=== PATIENT | male | born 1955 | race Caucasian/White ===

== ENCOUNTER 2018-07-24 07:07 | Observation (INO) | payer OTHER ==
[~2018-07-24] VITALS: Ht 182.9 cm; Wt 77.6 kg
[2018-07-24 07:14] VITALS: Ht 182.9 cm; Wt 77.6 kg
--- NOTE | 2018-07-24 07:20 | NUR ---
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 PT A/O X4. RESPONDING TO QUESTIONS APPROPRIATELY. PT AMBULATORY TO [facility] WHILE NOT HAVING A CRAMPING EPISODE. COMFORT MEASURES IMPLEMENTED. CALL LIGHT W/IN REACH. PT AWAITING MSE. WILL CTM.
[2018-07-24 08:08] LABS: BASOPHIL % 0.3 % (0-2); PLATELET COUNT 144 x10^3mcL (130-400); RED CELL DISTRIBUTION WIDTH 12.5 % (11.5-14.5)
[2018-07-24 08:12] LABS: CALCIUM 9.4 mg/dL (8.5-10.1); CREATININE SERUM 1.3 mg/dL (0.7-1.3); POTASSIUM SERUM 3.7 mmol/L (3.5-5.1)
--- NOTE | 2018-07-24 08:15 | NUR ---
MEDICATED ORDERED. PLEASE SEE EMR.
[2018-07-24 08:16] LABS: ALBUMIN 3.9 g/dL (3.4-5.0); BILIRUBIN TOTAL 0.96 mg/dL (0.20-1.00); TOTAL PROTEIN, SERUM 7.3 g/dL (6.4-8.2)
--- NOTE | 2018-07-24 08:48 | NUR ---
DR. HANNAH AT BEDSIDE DISCUSSING PLAN OF CARE.
[2018-07-24] MEDS ORDERED: HYDROCHLOROTH12.5 M2 PO (08:57)
[2018-07-24] MEDS ORDERED: DIOVAN160 MG PO (08:57)
[2018-07-24] MEDS ORDERED: ATENOLOL25 MG PO (08:58)
[2018-07-24] MEDS ORDERED: NEU300 PO (08:58)
[2018-07-24] MEDS ORDERED: SIMVASTATIN20 M1 PO (08:58)
--- NOTE | 2018-07-24 09:22 | NUR ---
SPOKE W/DR. BALDERAS. INFORMED OF LAB RESULTS. STATED HE WILL PERFORM COLONOSCOPY IN OR AT [facility] [place] LATER TODAY.
--- NOTE | 2018-07-24 10:20 | NUR ---
REPORT CALLED AND GIVEN TO RN. CARO TO ASSUME CARE.
--- NOTE | 2018-07-24 10:45 | NUR ---
RECEIVED PT FROM ER. ADMISSION HISTORY AND ASSESSMENT IS DONE. PT DENIES PAIN THIS TIME. SAFTEY PRECAUTIONS ARE IN PLACE. WILL MONITOR. PT'S AT BEDSIDE.
[2018-07-24 11:02] VITALS: BP 123/68
--- NOTE | 2018-07-24 11:40 | NUR ---
GI LAB STAFF TOOK PT TO GI LAB VIA [employer]. V/S STABLE. DENIES PAIN. PT SIGNED CONSENT FOR COLONOSCOPY AND ANESTHESIA. CHECK LIST DONE. REPORT GIVEN TO GI NURSE.
--- NOTE | 2018-07-24 12:50 | NUR ---
RECEIVED PT FROM GI LAB AFTER COLONOSCOPY. V/S STABLE. PT IS AWAKE,ALERT AND ORIENTED X4. AT BEDSIDE. DENIES ANY PAIN. NO NAUSEA/VOMITING. XX=669/75, HR=88, RES=16, YNX8=085%, TEMP=98.6.
[2018-07-24 13:10] VITALS: BP 109/53
--- NOTE | 2018-07-24 14:00 | NUR ---
SPOKE WITH AND INFORMED HIM ABOUT COLONOSCOPY DX, HE SAID PT CAN GO HOME TODAY AND NO NEED OF LR AND GOT THE ORDER FOR DC LR.
--- NOTE | 2018-07-24 15:00 | NUR ---
PT RESTING IN BED, VOIDED. STABLE. TOLERATED REGULAR DIET.
--- NOTE | 2018-07-24 16:44 | NUR ---
DR BRODY NOTIFIED ABOUT COLONOSCOPY RESULT. PER DR BRODY PATIENT TO BE DC HOME TODAY. ATTENDING NURSE CARO MADE AWARE.
[2018-07-24 17:09] VITALS: BP 109/53
[2018-07-24 17:16] VITALS: BP 111/70
--- NOTE | 2018-07-24 17:30 | NUR ---
DISCHARGE INSTRUCTIONS GIVEN. PB SIGNED AND SENT WITH PT. IV REMOVED AND DRESSING APPLIED. PT DENIES PAIN. NO LOOSE STOOL. STABLE. V/S STABLE. STRUCTURAL BIOLOGIST WHEELED PT DOWN TO LOBBY ACCOMPANIED WITH PT'S . PT DC HOME.
== END 2018-07-24 18:12 | disposition home or self-care (01) | DRG 641 ==
LOC: ED 07:07 → MU 09:44
PROVIDERS: Emergency Medicine; Internal Medicine; ADMIT Internal Medicine Pulmonary Disease
PROC: 0DJD8ZZ Inspection of Lower Intestinal Tract, Via Natural or Artificial Opening Endoscopic (ICD-10-PCS; principal; 2018-07-24 11:30)
DX: E83.42 Hypomagnesemia (principal); E87.1 Hypo-osmolality and hyponatremia; E86.0 Dehydration; K57.30 Diverticulosis of large intestine without perforation or abscess without bleeding; K21.9 Gastro-esophageal reflux disease without esophagitis; I10 Essential (primary) hypertension; E78.00 Pure hypercholesterolemia, unspecified
CPT/HCPCS: 45378; G0378; J1200; J1610; J1885; J2250; J2310; J2405; J3010; J3475; J3490; J7030; Q0092

== ENCOUNTER 2019-09-29 09:43 | Inpatient (IN) | payer BC ==
[~2019-09-29] VITALS: Ht 182.9 cm; Wt 82.2 kg
[~2019-09-29 09:43] MED LIST: ATENOLOL25 MG PO; DIOVAN160 MG PO; HYDROCHLOROTH12.5 M2 PO; NEU300 PO; SIMVASTATIN20 M1 PO
--- NOTE | 2019-09-29 09:53 | NUR ---
PT BIBA FOR NAUSEA AND DIZZINESS FOR 2 DAYS. PT REPORTING YESTERDAY MORNING IT WAS BAD BUT THEN GOT BETTER AND THEN THIS AM IT CAME BACK WORSE THAN YESTERDAY WITH NAUSEA. PTIS ALERT AND ORIENTED AND BREATHING IS UNLABORED AND EVEN. PT LYING IN POC SUPINE WITH HEAD ELEVATED ABOUT 20 DEGRESS, PT STAATES ANY HIGHER MAKES THE DIZZINESS WORSE AND HE BECOMES NAUSEATED. 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
[2019-09-29 10:29] LABS: CALCIUM 8.5 mg/dL (8.5-10.1); CARBON DIOXIDE 26.3 mmol/L (21-32); CREATININE SERUM 1.5 mg/dL (0.7-1.3); POTASSIUM SERUM 4.2 mmol/L (3.5-5.1)
[2019-09-29 10:34] LABS: ALBUMIN 3.8 g/dL (3.4-5.0); BILIRUBIN TOTAL 0.6 mg/dL (0.20-1.00); MAGNESIUM 1.7 mg/dL (1.8-2.4)
--- NOTE | 2019-09-29 10:42 | NUR ---
PT RESTING IN BED, MEDICATED FOR NAUSEA AND DIZZINESS, IV INFUSING WITHOUT SIGNS OF INFILTRATION. PT TALKING IN COMPLETE SENTENCES.
[2019-09-29 10:46] LABS: BASOPHIL % 0.5 % (0-2); PLATELET COUNT 144 x10^3mcL (130-400); RED CELL DISTRIBUTION WIDTH 12.4 % (11.5-14.5)
--- NOTE | 2019-09-29 13:46 | NUR ---
PT ASSISTED TO A BEDSIDE COMMODE BY EMT PER PT REQUEST
--- NOTE | 2019-09-29 14:36 | NUR ---
PT OFF THE FLOOR TO CT VIA [facility]
--- NOTE | 2019-09-29 15:21 | NUR ---
PT BACK FROM CT AND RECONNECTED TO CARDIAC [facility] SET UP
--- NOTE | 2019-09-29 16:03 | NUR ---
PT SLEEPING IN BED IN POC, EYES CLOSED BUT AROUSABLE TO VERBAL STIMULI. PT GIVEN WARM BLANKET FOR COMFORT.
--- NOTE | 2019-09-29 16:32 | NUR ---
CALLED TO GIVE REPORT; PER IMAN CALL BACK IN 10 MINS.
--- NOTE | 2019-09-29 16:40 | NUR ---
IMAN CALLED AND GAVE REPORT, ALL QUESTIONS ADDRESSED AND OK TO TAKE PT TO THE FLOOR.
--- NOTE | 2019-09-29 16:44 | NUR ---
PT WILL TRY AND GET NAMES OF HOME MEDS FROM .
--- NOTE | 2019-09-29 17:00 | NUR ---
RECEIVED PT FROM ED VIA [employer], CAME IN DUE TO DIZZINESS. AAOX4. C/O DIZZINESS, NO FACIAL DROOP/ARM DRIFT. HAND CELL LEAD ARE EQUAL AND STRONG. PUPILS ARE SLUGGISH. NO FACIAL ASYMMETRY NOTED. SPEECH IS CLEAR AND APPROPRIATE. DENIES BLURRY VISION. NO SOB NOTED, LUNG SOUNDS CTA. O2 SAT=99%, RA. DENIES CHEST PAIN/PRESSURE, SR ON THE MONITOR. DENIES ABDOMINAL DISCOMFORT. BOWEL SOUNDS ACTIVE. VOIDS. IV SITE PATENT AND INTACT. SIDE RAILS UPX2. CALL LIGHT ON REACH. PRIMARY NURSE IMAN AT BEDSIDE FOR CONTINUITY OF CARE
[2019-09-29 17:12] VITALS: BP 132/74
[2019-09-29 17:23] VITALS: Ht 182.9 cm; Wt 82.2 kg
[2019-09-29 18:21] LABS: PHOSPHOROUS 1.2 mg/dL (2.5-4.9)
[2019-09-29 18:25] LABS: T3 TOTAL 1.38 ng/mL
[2019-09-29 18:30] LABS: CHOLESTEROL/HDL RATIO 2.4
[2019-09-29 19:13] LABS: FREE T4 1.23 ng/dL (0.76-1.46); FREE THYROXINE INDEX 2.9 ug/dL (1.4-4.5)
--- NOTE | 2019-09-29 19:40 | NUR ---
RECEIVED PT FROM AM NURSE. PT AAOX4, ABLE TO FOLLOW COMMAND AND MAKE NEEDS KNONW. PT C/O DIZZINESS. DENIES ANY GARCIA. SPEECH CLEAR, NO FACIAL DROOP NOTED. TELE#20 READING SR, DENIES CP/PRESSURE AT THIS TIME. PALPABLE PULSES TO ALL EXTREMETIES. NO EDEMA NOTED. LUNG SOUNDS CTA, BREATHING EVEN AND UNLABORED ON RA. NO SOB NOTED. ABD SOFT AND NONDISTENDED, ACTIVE BS X4 QUAD. DENIES N/V/D. VOIDS FREELY. GENERALIZED WEAKNESS. AMBULATORY. IV TO LH PATENT AND INTACT. SITE WNL. NO ACUTE DISTRESS NOTED. BED AT LOWEST SETTING. SIDE RAILS X2 UP. CALL LIGHT WITHING REACH. WILL CONT TO MONITOR.
[2019-09-29 20:22] VITALS: BP 100/66
--- NOTE | 2019-09-29 23:34 | NUR ---
REPORT GIVEN TO PRAVEEN NAVAS FOR CONTINUITY OF CARE. ALL QUESTIONS AND CONCERNS ADDRESSED.
--- NOTE | 2019-09-29 23:36 | NUR ---
REPORT GIVEN TO SUE NAVAS FOR CONTINUITY OF CARE. ALL QUESTIONS AND CONCERNS ADDRESSED.
[2019-09-29] MEDS ORDERED: LYRICA100 M1 PO (23:43)
--- NOTE | 2019-09-29 23:49 | NUR ---
RECEIVED PT FROM ELOISE ROBERTSON. PT SEEN LYING IN BED, AAOX4. STATED THAT HE HAS MILD DIZZINESS. NO FACIAL DROOP/ARM DRIFT. SPEECH IS CLEAR. NO DIFFICULTY SWALLOWING. DR. TIAN MADE AWARE THAT PATIENT TAKES PREGBALIN 100 MG PO BID AND PT IS ASKING FOR HIS DOSE TONIGHT. CALL LIGHT ON REACH. SIDE RAILS UPX2. WILL CONT TO MONITOR
--- NOTE | 2019-09-30 03:43 | NUR ---
PT HAS HIS EYES CLOSED, EASILY AROUSABLE W/ VERBAL STIMULI. ABLE TO FOLLOW COMMANDS. SPEECH IS CLEAR. STATED THAT HE HAS MILD DIZZINESS. NO FACIAL DROOP/ ARM DRIFT. HAND POWDER GUARD ARE EQUAL. CALL LIGHT ON REACH. WILL CONT TO MONITOR.
--- NOTE | 2019-09-30 05:29 | NUR ---
PT AWAKE, NO C/O PAIN AND SOB. NEEDS ARE ATTENDED. IV SITE PATENT AND INTACT, PADDED SIDE RAILS UPX2. HOB ELEVATED AT 45 DEG. CALL LIGHT ON REACH. WILL CONT TO MONITOR.
--- NOTE | 2019-09-30 05:31 | NUR ---
EXPLAINED THE PURPOSE OF SCD'S, PT DOES NOT WANT IT ON AT THIS TIME.
[2019-09-30 05:36] VITALS: BP 123/71
[2019-09-30 06:37] LABS: BASOPHIL % 0.6 % (0-2); PLATELET COUNT 134 x10^3mcL (130-400); RED CELL DISTRIBUTION WIDTH 12.9 % (11.5-14.5)
--- NOTE | 2019-09-30 07:00 | NUR ---
RECEIVED PT FROM NIGHT RN. PT RESTING IN BED, AAOX4. SPEECH CLEAR. DENIES GARCIA BUT STILL C/O DIZZINESS. NO FACIAL DROOP, NO ARM DRIFT NOTED. PERRLA. RES E/U, NO RESPIRATORY DISTRESS NOTED. DENIES SOB ON RA. TELE MONITOR 20 SHOWING SR, DENIES CP/PRESSURE. PERIPHERAL PULSES PRESENT W NO EDEMA NOTED. ABDOMEN SOFT. DENIES N/V/D/C. NO GI/ COMPLAINT. IV SITE TO S[employer] SL, W NO S/S OF INFILTRATION NOTED. BED IN LOWEST POSITION, CALL LIGHT WITHIN REACH.
--- NOTE | 2019-09-30 07:07 | NUR ---
BEDSIDE REPORT GIVEN TO SHAYAN FOR CONTINUITY OF CARE
[2019-09-30 07:18] LABS: CALCIUM 8.6 mg/dL (8.5-10.1); CARBON DIOXIDE 28.4 mmol/L (21-32); CREATININE SERUM 1.3 mg/dL (0.7-1.3); MAGNESIUM 2.2 mg/dL (1.8-2.4); PHOSPHOROUS 3.3 mg/dL (2.5-4.9); POTASSIUM SERUM 4.3 mmol/L (3.5-5.1)
[2019-09-30 07:27] VITALS: BP 112/67
[2019-09-30 08:05] LABS: microscopic required? NO
[2019-09-30 08:19] LABS: urine erythrocyte NEGATIVE (NEGATIVE)
[2019-09-30] MEDS ORDERED: ECO81 PO (11:19)
[2019-09-30] MEDS ORDERED: CLA10 PO (11:19)
[2019-09-30] MEDS ORDERED: MECLIZINE HYDRO25 M1 PO (11:20)
--- NOTE | 2019-09-30 11:44 | NUR ---
PT C/O DIZZINESS AND GIVEN ANTIVERT PER EMAR
[2019-09-30 12:08] VITALS: BP 112/67
[2019-09-30 14:15] VITALS: BP 118/72
--- NOTE | 2019-09-30 15:37 | NUR ---
PT C/O HEADACHE, GIVEN TYLENOL PO PER EMAR
--- NOTE | 2019-09-30 16:05 | NUR ---
PRINTED AND EXPLAINED DISCHARGE INSTRUCTIONS TO PATIENT. DISCHARGE INSTRUCTIONS INCLUDE MEDICATIONS, PRESCRIPTIONS, ACTIVITY, FOLLOW UP W APPOINTMENT, AND WORSENING SYMPTOMS. ALL NEEDS MET AND CONCERNS ADDRESSED. ID WRISTBAND REMOVED. IV SITE REMOVED AND CATHETER INTACT. ALL BELONGINGS WITH PATIENT. PT TAKEN DOWN TO LOBBY VIA WHEELCHAIR ACCOMPANIED BY PHOTOSTAT OPERATOR.
--- NOTE | 2019-10-01 07:48 | NUR ---
ECHOCARDIOGRAM NOT DONE-DISCHARGED
== END 2019-09-30 16:05 | disposition home or self-care (01) | DRG 73 ==
LOC: ED 09:43 → MU 16:14 → DU 16:14 → MU 09-30 10:24
PROVIDERS: Emergency Medicine; ADMIT Internal Medicine; ATTEND Internal Medicine
DX: G90.8 Other disorders of autonomic nervous system (principal); N17.0 Acute kidney failure with tubular necrosis; I10 Essential (primary) hypertension; K21.9 Gastro-esophageal reflux disease without esophagitis; E78.00 Pure hypercholesterolemia, unspecified; M50.30 Other cervical disc degeneration, unspecified cervical region; M51.36 Other intervertebral disc degeneration, lumbar region; E78.5 Hyperlipidemia, unspecified; R26.0 Ataxic gait; Z88.5 Allergy status to narcotic agent; Z88.1 Allergy status to other antibiotic agents; Z79.899 Other long term (current) drug therapy
CPT/HCPCS: 83880; 84439; G0378; J2060; J2405; J3475; J7030; J8597; Q0092; Q9967